=== PATIENT | male | born 1945 | race African-American/Black ===

== ENCOUNTER 2022-08-09 15:12 | Emergency (ER) | payer OTHER ==
[~2022-08-09] VITALS: Ht 182.9 cm; Wt 86.0 kg
[2022-08-09 16:33] LABS: BASOPHILS % 0.3 % (0.0-2.0); EOSINOPHILS % 0.3 % (0.0-5.0); HEMATOCRIT. 42.2 % (42.0-52.0); HEMOGLOBIN. 14.5 g/dL (14.0-18.0); LYMPHOCYTES % 12.9 % (20.0-50.0); MEAN CORPUSCULAR HEMOGLOBIN 33.8 pg (28.0-32.0); MEAN PLATELET VOLUME 8.2 fl (7.4-10.4); MONOCYTES % 8.3 % (2.0-8.0); NEUTROPHILS % 78.2 % (40.0-76.0); PLATELET 145 x1000/uL (130-400); RED CELL DISTRIBUTION WIDTH 12.5 % (11.6-14.6)
[2022-08-09 16:37] LABS: CHLORIDE 100 mEq/L (98-107)
[2022-08-09 16:53] LABS: ETHANOL BLOOD < 10 mg/dL
[2022-08-09 17:52] LABS: CLARITY URINE CLEAR (CLEAR); COLOR URINE YELLOW (YELLOW); KETONES URINE NEGATIVE (NEGATIVE); LEUKOCYTE ESTERASE URINE NEGATIVE (NEGATIVE); NITRITE URINE NEGATIVE (NEGATIVE); OCCULT BLOOD URINE 1+ (NEGATIVE); PROTEIN URINE 2+ (NEGATIVE); SPECIFIC GRAVITY URINE 1.009 (1.005-1.030); UROBILINOGEN URINE 0.2 E.U./dL (0.2-1.0)
[2022-08-09] MEDS: OLANZAPINE 5MG TABLET PO SCH (18:00)
[2022-08-09] MEDS ORDERED: DIPHENHYDRAMINE 25MG CAPSULE PO ONE (18:00)
[2022-08-09] MEDS ORDERED: OLANZAPINE 10 MG/VIAL IM ONE (18:15)
[2022-08-09] MEDS ORDERED: DIPHENHYDRAMINE 50MG/ML VIAL IM NR (19:00)
[2022-08-09] MEDS: LORAZEPAM 2MG/ML CPJ IM PRN (19:18)
[2022-08-09 19:47] LABS: *AMPHETAMINES SCREEN URINE NEGATIVE (NEGATIVE); *BARBITURATES SCREEN URINE NEGATIVE (NEGATIVE); *BENZODIAZEPINES SCREEN URINE NEGATIVE (NEGATIVE); *COCAINE SCREEN URINE NEGATIVE (NEGATIVE); CANNABINOID URINE SCREEN NEGATIVE (NEGATIVE); METHADONE URINE SCREEN NEGATIVE (NEGATIVE); OPIATES URINE SCREEN NEGATIVE (NEGATIVE); PHENCYCLIDINE URINE SCREEN NEGATIVE (NEGATIVE)
[2022-08-09] MEDS ORDERED: POTASSIUM CHLORIDE 20MEQ TABLET SR PO NR (22:45)
[2022-08-10] MEDS: LORAZEPAM 2MG/ML CPJ IM PRN (00:15)
[2022-08-10] MEDS: OLANZAPINE 5MG TABLET PO SCH (18:22)
[2022-08-10 19:58] VITALS: BP 145/76
== END 2022-08-10 20:30 | disposition home or self-care (01) ==
LOC: ER 15:12 → EDBD 15:12 → ER 08-10 20:30
DX: F43.10 Post-traumatic stress disorder, unspecified (principal); I10 Essential (primary) hypertension; Z20.822 Contact with and (suspected) exposure to COVID-19
CPT/HCPCS: 36415; 70450; 71045; 80053; 80305; 80307; 80320; 80329; 81003; 82140; 82962; 83880; 84443; 84484; 85025; 87426; 93005; 96372; 99285; C9803; J1200; J2060; J3490; Q0163; G0480